=== PATIENT | male | born 1950 | race Caucasian/White ===

== ENCOUNTER 2016-10-13 12:59 | Emergency (ER) | payer MEDICARE, BC ==
[~2016-10-13] VITALS: Ht 175.3 cm; Wt 100.1 kg
[2016-10-13 15:12] VITALS: BP 159/76
--- NOTE | 2016-10-13 16:46 | REP ---
Right hand series: Five views. History: Crush injury. Findings: Five views of the right hand demonstrate diffuse soft tissue swelling mostly over the metacarpals, but also involving the fingers. There is some soft tissue gas suspected on lateral radiograph over the mid metacarpals. No fracture is seen. No opaque foreign body is noted. 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 Impression: No fracture or opaque foreign body. Diffuse soft tissue swelling and some soft tissue gas suspected in the dorsal soft tissues over the metacarpals. Signed by Brennen Juarez MD 10/13/2016 05:02 P
== END 2016-10-13 15:20 | disposition home or self-care (01) ==
LOC: M ED 12:59
DX: S60.221A Contusion of right hand, initial encounter (principal); S61.419A Laceration without foreign body of unspecified hand, initial encounter; W23.0XXA Caught, crushed, jammed, or pinched between moving objects, initial encounter; Y92.018 Other place in single-family (private) house as the place of occurrence of the external cause; Y99.9 Unspecified external cause status; Y93.9 Activity, unspecified; Z87.891 Personal history of nicotine dependence; Z88.0 Allergy status to penicillin